=== PATIENT | male | born 1975 | race Caucasian/White ===

== ENCOUNTER → 2021-10-03 | Day surgery (SDC) | payer OTHER ==
[~2021-10-03] VITALS: Ht 185.4 cm; Wt 119.7 kg
[~2021-10-03] MED LIST: ALLEGRA ALLERG180 MG PO; LIPITOR20 MG PO; PRILOSEC20 MG PO
== END | disposition home or self-care (01) ==
LOC: FAS 07:03
DX: Z12.11 Encounter for screening for malignant neoplasm of colon (principal); K57.30 Diverticulosis of large intestine without perforation or abscess without bleeding; K21.9 Gastro-esophageal reflux disease without esophagitis; K44.9 Diaphragmatic hernia without obstruction or gangrene; E78.5 Hyperlipidemia, unspecified; Z87.891 Personal history of nicotine dependence; Z79.899 Other long term (current) drug therapy; Z72.89 Other problems related to lifestyle
CPT/HCPCS: J2704; J7120